=== PATIENT | female | born 1975 | race Caucasian/White ===

== ENCOUNTER 2021-07-27 21:50 | Emergency (ER) | payer OTHER, SELFPAY ==
[2021-07-27 22:05] VITALS: BP 122/62; PULSE 68; RESP 20; TEMP 36.6; O2SAT 100
--- NOTE | 2021-07-28 00:25 | ED.GENADULT ---
HPI - General Adult General Chief complaint: Dental/Oral Stated complaint: Root canal fri. increased swelling Time Seen by Provider: 07/28/21 00:25 Source: patient Mode of arrival: Ambulatory History of Present Illness HPI narrative: 45-year-old woman with minimal medical history has been having difficulty with her right upper 1st molar the last week. Was initially quite tender and she was seen by her dentist. She was referred to an saturation equipment operator and yesterday had a root canal. All week she was swollen and tender had been on antibiotics and given hydrocodone. The root canal but did not immediately relieve her pain and she states that there was as much pain radiating up into her face toward her ear and down her neck after the root canal as prior to. The saturation equipment operator placed her on dexamethasone for 3 days and asked that she stop the amoxicillin. Her pain continues radiating up toward the malar ridge she is concerned that the swelling is getting closer to her eye and is concerned that the pain has not abated. Related Data Home Medications Medication Instructions Recorded Confirmed clobetasol 0.05 % scalp solution 1 applic topical BEDTIME 05/27/21 07/08/21 clobetasol 0.05 % topical ointment 1 applic topical BEDTIME 05/27/21 07/08/21 conjugated estrogens 0.625 mg/gram 0.625 mg vaginal DAILY 05/27/21 07/08/21 vaginal cream (Premarin) solifenacin 5 mg tablet 5 mg PO DAILY 05/27/21 07/08/21 Previous Rx's Medication Instructions Recorded estradiol 0.25 appful vaginal DAILY #42.5 05/27/21 grams estradiol (Estring) 1 vag ring vaginal [id number] #1 ea 06/03/21 Allergies Allergy/AdvReac Type Severity Reaction Status Date / Time No Known Drug Allergies Allergy Unverified 07/08/21 16:21 Review of Systems Review of Systems Narrative: No fevers, cough, abdominal pain, chest pain, nausea vomiting. She is having headaches related to this dental pain Remainder of complete review of systems is otherwise unremarkable except for that included in the HPI. Patient History Social History Smoking Status: Never smoker Smoking Status: Never smoker Substance Use Type: does not use Exam Initial Vital Signs Initial Vital Signs: Vital Signs Temperature 98 F 07/27/21 22:05 Pulse Rate 68 07/27/21 22:05 Respiratory Rate 20 07/27/21 22:05 Blood Pressure 122/62 07/27/21 22:05 Pulse Oximetry 100 07/27/21 22:05 Oxygen Delivery Method 07/27/21 22:05 General: Alert appropriate in no acute distress HEENT: Minor swelling over the right cheek after the malar eminence without obvious abscess, drainage, erythema and no suggestion of superficial cellulitis. No TMJ tenderness with opening her jaw and no significant cervical adenopathy is appreciated. Respiratory: Able to speak in full sentences, no obvious respiratory distress Skin: No obvious rashes, warm and dry Neurologic: Grossly intact no obvious asymmetries or abnormalities Psych: appropriate insight and affect, cooperative Course Vital Signs Vital signs: Vital Signs - 8 hr 07/27/21 22:05 Temperature 98 F Pulse Rate 68 Respiratory Rate 20 Blood Pressure 122/62 Pulse Oximetry 100 Oxygen Delivery Method Room Air Medical Decision Making MDM Narrative Medical decision making narrative: 45-year-old woman with pain related to right upper 1st molar now almost 24 hours post root canal with significant pain and swelling. She has all medications available in simply looking for suggestions and guidance. Given the headache pain and swelling not responding to dexamethasone and hydrocodone reassured her that completing the 5 additional days of amoxicillin she currently has is safe and appropriate at this time. Would over appropriate use of pain medications particularly when she stops the Decadron and can add ibuprofen back in to the milieu. She will follow-up with her regular dentist on Thursday. At this time there is no evidence of periorbital abscess, sinus infection, fluctuant abscess, erysipelas or alternate diagnosis for her pain. She is safe for home discharge Discharge Plan Departure Patient Disposition: Home Clinical Impression: Dental abscess Instructions: DI for Dental Pain Activity Restrictions/Additional Instructions: Thank you for coming in tonight. I am so sorry you are continuing to suffer with this to the. It sounds like the root canal was absolutely the right thing to do. You are on steroids, also the right thing to do. I would recommend that you finish the 5 additional days of amoxicillin. In terms of pain control, using your oxycodone plus an additional Tylenol every 8 hours for the next 2 days while you continue the dexamethasone is appropriate. 1 to have completed the dexamethasone, you can use 400 mg of ibuprofen (2 [id number] pills) and 1 Tylenol every 6 hours in controlling pain. For severe pain you can use 400 mg of ibuprofen and 1 of the hydrocodone tablets that the dentist is given you. At this time, there is no obvious abscess and the swelling of your face does not suggest need for further imaging such as a CT scan. If you find that you are getting worse or develop any new symptoms, please feel free to return to the emergency department for further evaluation. Prescriptions: No Action Estring 2 mg (7.5 mcg /24 hour) ring 1 vag ring vaginal [id number] Qty: 1 3RF solifenacin 5 mg tablet 5 mg PO DAILY clobetasol 0.05 % solution 1 applic topical BEDTIME clobetasol 0.05 % ointment 1 applic topical BEDTIME Premarin 0.625 mg/gram cream 0.625 mg vaginal DAILY Rx Instructions: off 5 days; repeat cycle estradiol 0.01 % (0.1 mg/gram) cream 0.25 appful vaginal DAILY Qty: 42.5 3RF Rx Instructions: Apply small amount to external genitalia daily for 30 days and then twice a week Referrals: Manju Crane MD [Primary Care Provider] -
[2021-07-28 00:49] VITALS: BP 113/70; PULSE 72; RESP 18; O2SAT 100
== END 2021-07-28 00:49 | disposition home or self-care (01) ==
PROVIDERS: Emergency Provider Emergency Medicine; PCP Obstetrics & Gynecology
DX: K04.7 Periapical abscess without sinus (principal)
CPT/HCPCS: 99281

== ENCOUNTER → 2022-02-24 13:55 | Outpatient (CLI) | payer OTHER, SELFPAY ==
[2022-02-24 15:16] LABS: COVID19 -Nasal RAPID Negative (Negative)
--- NOTE | 2022-02-24 18:01 | DI.NM.S_ITS ---
DATE OF SERVICE: 02/24/2022 PROCEDURE: Exercise stress test. INDICATION: Chest discomfort, palpitation, dizziness. CARDIAC STRESS: The patient underwent exercise stress test under the supervision of an attending staff. She walked on Anoop protocol for 9 minutes and 35 seconds, achieved maximum heart rate of 175, which was 101 percent of target heart rate. However, within 3 minutes, heart rate went up to 157, suggestive of enhanced chronotropic response. Resting blood pressure 100/58. Peak blood pressure 148/80 mmHg. Achieved 10.1 METs of workload. ASIF -18 percent. No chest pain or anginal symptoms. Baseline rhythm was sinus. During exercise, no convincing ischemic EKG changes seen. At rest, patient has some PVCs, which got worse and during exercise with frequent ventricular couplets, as well. Monomorphic PVCs. PVCs persisted in recovery, as well, including ventricular couplets without any ventricular tachycardia. There was late recovery. At 5 minutes in recovery, heart rate was 107 beats per minute. CONCLUSION: Exercise stress test is negative for inducible ischemia. Good exercise tolerance. Functional aerobic impairment -18 percent. Normal blood pressure response, however, enhanced chronotropic response. Late recovery. 5 minutes in recovery, heart rate was about 107 beats per minute. Occasional resting ventricular ectopics, which got worsened during exercise and persisted in recovery as well, including ventricular couplets, however, no ventricular tachycardia seen. No anginal symptoms. Correlate clinically. Johanna CoxzCarmen - Ovidio/marietta doc#: [id number]/job#: [id number] dd: 02/24/2022 16:55:00 dt: 02/24/2022 17:40:00 DICTATING MD/COPIES TO: Jaimie Phillip MD COPIES MNE: DOUG;
== END ==
PROVIDERS: PCP Physician Assistant; Referring Provider Physician Assistant; Visit Provider Physician Assistant
DX: R07.89 Other chest pain (principal); R42 Dizziness and giddiness; R00.2 Palpitations; Z20.822 Contact with and (suspected) exposure to COVID-19
CPT/HCPCS: 87635; 93017

== ENCOUNTER → 2022-09-01 11:58 | Outpatient (CLI) | payer OTHER, SELFPAY ==
--- NOTE | 2022-09-01 | DI.US.S_ITS ---
ULTRASOUND OF LEFT BREAST: 09/01/2022 CLINICAL: Palpable left breast lump and focal pain. Comparison is made to exams dated: 09/01/2022 mammogram - [facility] and 01/07/2021 mammogram - [facility]. Real-time ultrasound of the left breast was performed. Marshall scale images of the real-time examination were reviewed. No significant abnormalities were seen sonographically in the left breast. IMPRESSION: NEGATIVE There is no sonographic evidence of malignancy. There is no abnormality seen in the left breast to correspond with the area of clinical concern at 2 o'clock, however, clinical correlation and clinical followup are recommended. Return to annual mammogram screening schedule is recommended. This exam was interpreted at Station ID: [id number]. Electronically Signed By: Robert Maciel M.D. lc/:09/01/2022 13:44:26 letter sent: Clinical Evaluation Ultrasound BI-RADS: 1 Negative
--- NOTE | 2022-09-01 11:59 | DI.MG.S_ITS ---
BILATERAL DIGITAL DIAGNOSTIC MAMMOGRAM 3D/2D: 09/01/2022 CLINICAL: Mastodonia and breast lump. Comparison is made to exam dated: 01/07/2021 mammogram - [facility]. Both breasts are extremely dense, which lowers the sensitivity of mammography (category d />75% glandular tissue). No significant masses, calcifications, or other findings are seen in either breast. IMPRESSION: INCOMPLETE: NEEDS ADDITIONAL IMAGING EVALUATION There is no abnormality seen in the left breast to correspond with the palpable abnormality, however, ultrasound is recommended. There is no abnormality seen in the left breast to correspond with the diffuse pain, however, clinical correlation and clinical followup are recommended. Based on the Tyrer Cuzick model (a risk assessment model) the patient's lifetime risk is 15.3% and her 10 year risk is 3.1%. According to the ACR, ACS, and NCCN guidelines, an annual breast MRI exam along with mammogram is recommended if the patient's lifetime risk is 20% or greater. This exam was interpreted at Station ID: [id number]. NOTE: For mammograms, a report in lay terms will be sent to the patient. Approximately 15% of breast malignancies will not be visualized mammographically. In the management of a palpable breast mass, a negative mammogram must not discourage biopsy of a clinically suspicious lesion. Electronically Signed By: Robert Maciel M.D. lc/:09/01/2022 13:43:02 ACR BI-RADS Category 0: Incomplete 3340F
== END ==
PROVIDERS: PCP Physician Assistant; Referring Provider Physician Assistant; Visit Provider Physician Assistant
DX: N64.4 Mastodynia (principal); R92.2 Inconclusive mammogram
CPT/HCPCS: 76642; 77066; G0279

== ENCOUNTER → 2023-07-18 09:40 | Outpatient (CLI) | payer OTHER, SELFPAY ==
--- NOTE | 2023-07-18 | DI.RAD.S_ITS ---
PROCEDURE: XR HIP W PEL IF DONE RT 2V INDICATIONS: RIGHT HIP PAIN TECHNIQUE: AP pelvis with lateral view of the right hip. COMPARISON: None. FINDINGS: Bones: No acute fractures or dislocations. Pelvic ring appears intact. No suspicious bony lesions. Very mild degenerative changes are seen in the hips. Soft tissues: The visualized bowel gas pattern is normal. No suspicious soft tissue calcifications. IMPRESSION: Minimal bilateral hip osteoarthrosis. Approved by: Kin Bray M.D. on 07/18/2023 at 21:59
--- NOTE | 2023-07-18 | DI.CT.S_ITS ---
PROCEDURE: CT KIDNEY URETER BLADDER (KUB) INDICATIONS: LEFT FLANK PAIN TECHNIQUE: Axial sections were acquired from the lung bases to the pubic symphysis. Coronal and sagittal reformats were performed. For radiation dose reduction, the following was used: automated exposure control, adjustment of mA and/or kV according to patient size. COMPARISON: None. FINDINGS: Image quality: Diagnostic. Lower Chest: Benign densely calcified granuloma is seen in the left lung base. URINARY: Right Kidney: No stones or hydronephrosis. Right Ureter: No hydroureter. Left Kidney: No stones or hydronephrosis. Left Ureter: No hydroureter. Bladder: Normal wall thickness. No stones. ABDOMEN: Liver: No contour-deforming solid mass. Gallbladder: No radiopaque gallstones or wall thickening. Biliary ducts: No biliary dilation. Pancreas: No ductal dilation. Spleen: Size is within normal limits. Adrenal Glands: No adrenal nodules. Stomach and Bowel: A few diverticula are seen in the colon without signs of acute diverticulitis. Moderate colonic stool. Small bowel loops and stomach are unremarkable. Appendix appears normal. Peritoneum: No abnormal intraperitoneal fluid. No free air. Ventral Wall: No hernia. Abdominal Nodes: No enlarged retroperitoneal or mesenteric lymph nodes. Vessels: Aorta and inferior vena cava are normal in size. PELVIS: Pelvic Organs: Unremarkable. Pelvic Nodes: Unremarkable. Miscellaneous: No inguinal hernias are seen. Bones: Unremarkable. IMPRESSION: 1. No renal or ureteral calculus or hydronephrosis. No definite source for right flank pain identified. 2. Colonic diverticulosis. Moderate colonic stool burden. Recommend correlation for constipation. Approved by: Kin Bray M.D. on 07/19/2023 at 11:31
--- NOTE | 2023-07-18 | DI.RAD.S_ITS ---
PROCEDURE: XR LUMBAR SPINE 2-3V INDICATIONS: BACK PAIN TECHNIQUE: 3 views of the lumbar spine were acquired. COMPARISON: None. FINDINGS: Bones: 5 [id number] vertebrae are present. Rudimentary ribs are noted at T12. There is normal bony alignment. No vertebral body compression fractures. No suspicious bony lesions. There is mild multilevel facet hypertrophy in the spine. Soft tissues: Overlying bowel gas pattern is normal. No suspicious soft tissue calcifications. IMPRESSION: No acute osseous abnormality. Mild multilevel spondylosis. Approved by: Kin Bray M.D. on 07/18/2023 at 21:57
== END ==
PROVIDERS: PCP Physician Assistant; Referring Provider Physician Assistant Medical; Visit Provider Physician Assistant Medical
DX: M47.816 Spondylosis without myelopathy or radiculopathy, lumbar region; K57.90 Diverticulosis of intestine, part unspecified, without perforation or abscess without bleeding; R10.12 Left upper quadrant pain; M25.551 Pain in right hip; M54.9 Dorsalgia, unspecified; R30.0 Dysuria
CPT/HCPCS: 72100; 73502; 74176

== ENCOUNTER → 2024-12-23 10:17 | Outpatient (CLI) | payer OTHER, SELFPAY ==
[2024-12-26 12:10] LABS: Trichomoas vaginalis Negative (Negative)
== END ==
PROVIDERS: PCP Internal Medicine; Visit Provider Obstetrics & Gynecology
DX: R30.0 Dysuria (principal); R10.20 Pelvic and perineal pain unspecified side
CPT/HCPCS: 81514; 87086

== ENCOUNTER → 2025-01-26 08:13 | Outpatient (CLI) | payer OTHER, SELFPAY ==
--- NOTE | 2025-01-26 08:17 | DI.US.S_ITS ---
PROCEDURE: US PELVIC COMPLETE INDICATIONS: pelvic pain in female TECHNIQUE: Real-time scanning was performed of the pelvic organs, with image documentation. Additional endovaginal scanning was necessary due to incomplete visualization of the adnexal and endometrial structures by transabdominal scanning. COMPARISON: [facility], US, US PELVIC COMPLETE, 09/19/2022, 15:16. FINDINGS: Uterus: Uterus is anteverted and normal in size at 8.3 x 3.9 cm. The myometrium is heterogeneous. The endometrium measures 9.8 mm combined thickness. Possible Venetian blind appearance of the uterus. Dilated vessels are noted within the posterior fornix of the cervix. Ovaries: The right ovary measures 2.8 x 2.1 x 2.5 cm, with a calculated ovarian volume of 7.8 cc. Possible corpus luteal cyst within the right ovary measuring 2.0 cm. The left ovary measures 1.7 x 2.1 x 1.3 cm, with a calculated ovarian volume of 2.5 cc. Less than 12 follicles can be seen in each ovary. No adnexal masses are seen. Other: No pathologic free abdominal or pelvic fluid. IMPRESSION: Endometrium measures 10 mm, recommend correlation with postmenopausal status as this is considered thickened in a postmenopausal female and further evaluation would be warranted. This is normal for a premenopausal female. Possible corpus luteal cyst in the right ovary measuring 2.0 cm. Heterogeneous appearance of the myometrium with suggestion of a Venetian blind appearance, correlate for adenomyosis. Dilated vessels are noted within the posterior fornix of the cervix. We strive to produce accurate, complete, and clear reports of imaging services. To assist us in improving patient care, this report was composed using standard report templates and voice recognition software. Therefore, it may contain abnormal punctuation, insertions and/or omissions. Occasional wrong-word or sound-alike substitutions may occur. Though we review the report and make efforts to correct it, we do recommend that the report be read carefully in proper context to recognize any text inaccuracies. Dictated by: Demar Recinos M.D. on 01/26/2025 at 10:25 Approved by: Demar Recinos M.D. on 01/26/2025 at 10:29
== END ==
PROVIDERS: PCP Internal Medicine; Referring Provider Internal Medicine; Visit Provider Obstetrics & Gynecology
DX: N94.89 Other specified conditions associated with female genital organs and menstrual cycle (principal); N90.4 Leukoplakia of vulva; R10.20 Pelvic and perineal pain unspecified side
CPT/HCPCS: 76830; 76856